=== PATIENT | female | born 1995 | race Two or more races ===

== ENCOUNTER 2025-03-04 09:46 | Emergency (ER) | payer OTHER ==
[~2025-03-04] VITALS: Ht 149.9 cm; Wt 74.4 kg
[2025-03-04 10:51] LABS: BASO % 0.6 % (0.1-1.2); EOS # 0.07 (0.04-0.54); EOS % 1.3 % (0.7-7.0); HEMATOCRIT 42.8 % (34.1-44.9); HEMOGLOBIN 14.5 g/dL (11.2-15.7); LYMPH # 1.45 (1.18-3.74); LYMPH % 26.7 % (19.3-53.1); MEAN CORPUSCULAR HEMOGLOBIN 29.8 pg (25.6-32.2); MONO # 0.34 (0.24-0.82); MONO % 6.3 % (4.7-12.5); NEUT # 3.53 (1.56-6.13); NEUT % 64.9 % (34.0-71.1); PLATELET COUNT 177 K/uL (163-369); RED BLOOD COUNT 4.86 M/uL (3.93-5.22); RED CELL DISTRIBUTION WIDTH 12.3 % (11.6-14.4)
[2025-03-04 11:15] LABS: CREATININE SERUM 0.7 mg/dL (0.55-1.02); GFR 100.38; POTASSIUM 3.93 mEq/L (3.5-5.1)
[2025-03-04 11:34] LABS: PH,URINE 5.5 (5.0-8.0); URINE APPEARANCE Cloudy; URINE BILIRRUBIN Negative (NEGATIVE); URINE BLOOD Large; URINE COLOR Orange; URINE GLUCOSE Negative (NEGATIVE); URINE KETONE Negative (NEGATIVE); URINE LEUKOCYTE Small; URINE NITRATE Negative; URINE PROTEIN 30 (NEGATIVE); URINE UROBILINOGEN 0.2 E.U./dl
[2025-03-04 11:35] LABS: URINE BACTERIA 77.1 uL (0.0-1933); URINE EPITHELIAL CELLS 7.1 uL (0.0-38.8)
[2025-03-04 11:53] LABS: URINE RBC > 10558.9 uL (0.0-20.8)
== END 2025-03-04 12:50 | disposition home or self-care (01) ==
LOC: ER 10:21
PROVIDERS: Emergency Medicine
DX: N93.8 Other specified abnormal uterine and vaginal bleeding (principal); R00.2 Palpitations